=== PATIENT | female | born 1990 | race Caucasian/White ===

== ENCOUNTER → 2018-06-09 | Outpatient (CLI) | payer OTHER ==
[2018-06-09 12:01] LABS: BASO # 0.1 10^3/uL (0.0-0.2); BASO % 0.7 % (0.0-1.0); EOS # 0.1 10^3/uL (0.0-0.50); EOS % 1.7 % (0.0-3.0); HEMOGLOBIN 14.7 g/dl (12.0-15.5); LYMPH # 2.1 10^3/uL (1.5-6.5); LYMPH % 30.8 % (24.0-44.0); MEAN CORPUSCULAR HEMOGLOBIN 28.9 pg (27.0-33.0); MEAN CORPUSCULAR HGB CONC 31.3 g/dl (32.0-36.5); MEAN CORPUSCULAR VOLUME 92.5 fl (80.0-96.0); MONO # 0.5 10^3/uL (0.0-0.8); MONO % 6.7 % (0.0-5.0); NEUTROPHILS # 4.1 10^3/uL (1.8-7.7); NEUTROPHILS % 59.8 % (36.0-66.0); PLATELET COUNT, AUTOMATED 287 10^3/uL (150-450); RED BLOOD COUNT 5.08 10^6/uL (4.00-5.40); WHITE BLOOD COUNT 6.9 10^3/uL (4.0-10.0)
[2018-06-09 12:40] LABS: ALBUMIN 4.2 GM/DL (3.2-5.2); ALT/SGPT 26 U/L (12-78); BILIRUBIN,TOTAL 0.5 MG/DL (0.2-1.0); BLOOD UREA NITROGEN 10 MG/DL (7-18); CALCIUM LEVEL 8.4 MG/DL (8.5-10.1); CARBON DIOXIDE LEVEL 28 MEQ/L (21-32); CHLORIDE LEVEL 106 MEQ/L (98-107); CREATININE FOR GFR 0.66 MG/DL (0.55-1.30); GLOMERULAR FILTRATION RATE > 60.0 (>60); GLUCOSE, FASTING 92 MG/DL (70-100); POTASSIUM SERUM 4.2 MEQ/L (3.5-5.1); SODIUM LEVEL 141 MEQ/L (136-145); TOTAL PROTEIN 7.8 GM/DL (6.4-8.2)
[2018-06-09 13:52] LABS: HEMOGLOBIN A1c 4.9 %
== END ==
LOC: M SMT 09:54
PROVIDERS: ATTEND Physician Assistant
DX: N97.9 Female infertility, unspecified (principal)

== ENCOUNTER → 2019-07-11 | Outpatient (CLI) | payer OTHER ==
[2019-07-11 15:24] LABS: BLOOD UREA NITROGEN 10 MG/DL (7-18); CALCIUM LEVEL 8.9 MG/DL (8.5-10.1); CARBON DIOXIDE LEVEL 29 MEQ/L (21-32); CHLORIDE LEVEL 105 MEQ/L (98-107); CREATININE FOR GFR 0.78 MG/DL (0.55-1.30); GLOMERULAR FILTRATION RATE > 60.0 (>60); GLUCOSE, FASTING 82 MG/DL (70-100); POTASSIUM SERUM 4.1 MEQ/L (3.5-5.1); SODIUM LEVEL 138 MEQ/L (136-145)
== END ==
LOC: M LAB 13:49
PROVIDERS: ATTEND Family Medicine
DX: L70.8 Other acne (principal)

== ENCOUNTER → 2020-03-26 | Outpatient (CLI) | payer OTHER ==
--- NOTE | 2020-03-26 11:04 | REP ---
INDICATION: ENCOUNTER FOR SUPRVSN OF NORMAL PREG 2ND TRIMESTER COMPARISON: None. TECHNIQUE: Transabdominal obstetrical ultrasound with color Doppler evaluation. FINDINGS: Examination demonstrates a single live intrauterine in breech presentation. motion is identified by technologist. Placenta is noted anterior and grade 0 without evidence for placenta previa or abruption. Amniotic fluid volume is normal. Cervix measures 4.7 cm in length and appears closed.. Gestational age by LMP twenty weeks 6 days with AMADOU 08/07/2020. Gestational age by current measurements 21 weeks 5 days with AMADOU 08/01/2020. FHR equals 137 beats per minute. BPD: 5.0 cm 21 weeks 1 day HC: 19.0 cm 21 weeks 2 days AC: 17.7 cm 22 weeks 4 days FL: 3.4 cm 20 weeks 5 days HL: 3.6 cm 22 weeks 4 days HC/AC: 1.07 Estimated weight 442 grams (84thpercentile). Anatomical assessment demonstrates normal structures including cranium, choroid plexus, cavum, cerebellum/posterior fossa, facial features, lungs, four-chamber heart, diaphragm, stomach, cord insertion/three-vessel cord, kidneys/bladder, spine, and extremities. IMPRESSION: 1. Single live intrauterine in breech presentation demonstrating appropriate estimated weight and growth. 2. Limited evaluation of the cardiac ventricular outflow tracts. Remainder of the anatomical assessment is complete and normal. <Electronically signed by Max Mooney > 03/26/20 110
== END ==
LOC: M RAD 09:57
PROVIDERS: ATTEND Obstetrics & Gynecology
DX: Z36.89 Encounter for other specified antenatal screening (principal); Z3A.21 21 weeks gestation of pregnancy

== ENCOUNTER → 2020-05-28 | Outpatient (CLI) | payer OTHER ==
--- NOTE | 2020-05-28 11:35 | REP ---
INDICATION: F/U ANATOMY COMPARISON: 03/26/2020 TECHNIQUE: Transabdominal obstetrical ultrasound with color Doppler evaluation. FINDINGS: Examination demonstrates a single live intrauterine in cephalic presentation. motion is identified by technologist. Placenta is noted anterior and grade 1 without evidence for placenta previa or abruption. Amniotic fluid volume is normal. Cervix measures 3.1 cm in length and appears closed. Gestational age by LMP 29 weeks 6 days with AMADOU 08/07/2020. Gestational age by current measurements 30 weeks 4 days with AMADOU 08/02/2020. FHR equals 167 beats per minute. PAOLA: 17.5 cm (8.9-23.7) Estimated weight 1640 grams (54th percentile based on age by given AMADOU at 08/01/2020). Anatomical assessment demonstrates normal structures including facial profile, cardiac ventricular outflow tracts, diaphragm, stomach, abdominal wall, kidneys/bladder, spine and three-vessel cord. IMPRESSION: Single live intrauterine in cephalic presentation. Estimated weight is within normal range. In conjunction with prior examination anatomical assessment is complete and normal. <Electronically signed by Max Mooney > 05/28/20 [id number]
== END ==
LOC: M WHC 10:01
PROVIDERS: ATTEND Advanced Practice Midwife
DX: Z36.2 Encounter for other antenatal screening follow-up (principal); Z3A.29 29 weeks gestation of pregnancy

== ENCOUNTER → 2020-05-28 | Outpatient (REF) | payer OTHER ==
[2020-05-28 13:53] LABS: HEMATOCRIT 41.9 % (36.0-47.0); HEMOGLOBIN 13.3 g/dl (12.0-15.5); MEAN CORPUSCULAR HEMOGLOBIN 28.9 pg (27.0-33.0); MEAN CORPUSCULAR HGB CONC 31.7 g/dl (32.0-36.5); MEAN CORPUSCULAR VOLUME 90.9 fl (80.0-96.0); PLATELET COUNT, AUTOMATED 196 10^3/uL (150-450); RED BLOOD COUNT 4.61 10^6/uL (4.00-5.40); WHITE BLOOD COUNT 11.7 10^3/uL (4.0-10.0)
[2020-05-28 14:12] LABS: GLUCOSE CHALLENGE TEST 1 HOUR 125 MG/DL (LESS THAN 140)
[2020-05-28 15:08] LABS: HEPATITIS C VIRUS ABY INDEX < 0.0 INDEX (<0.8)
== END ==
LOC: M PLALAB 10:04
PROVIDERS: ATTEND Advanced Practice Midwife
DX: Z34.92 Encounter for supervision of normal pregnancy, unspecified, second trimester (principal); Z3A.23 23 weeks gestation of pregnancy
CPT/HCPCS: 36415; 76816; 82950; 85027; 86803; 86850; 86900; 86901; G0463

== ENCOUNTER → 2020-06-13 | Outpatient (REF) | payer OTHER | LOC: M SFHCWAGY 12:40 | PROVIDERS: ATTEND Obstetrics & Gynecology | DX: O26.899 Other specified pregnancy related conditions, unspecified trimester (principal) ==

== ENCOUNTER → 2020-06-21 | Outpatient (REF) | payer OTHER | LOC: M SFHCWAGY 13:07 | PROVIDERS: ATTEND Advanced Practice Midwife | DX: Z3A.33 33 weeks gestation of pregnancy (principal) ==

== ENCOUNTER 2020-07-10 12:51 | Inpatient (IN) | payer OTHER ==
[~2020-07-10] VITALS: Ht 170.2 cm; Wt 107.0 kg
[2020-07-10] VITALS (10 sets, daily range): BP systolic 116–150; BP diastolic 63–93
[2020-07-10] MEDS ORDERED: SERT-141 PO (13:17)
[2020-07-10] MEDS ORDERED: TUMS500C PO (13:17)
[2020-07-10] MEDS ORDERED: PRENTAB9 PO (13:17)
[2020-07-10] MEDS ORDERED: PENICILLIN G POTASSIUM IV 5 MU in D5W MINI-BAG PLUS 100 ML IV STA (13:39)
--- NOTE | 2020-07-10 13:56 | HPEPDOC ---
Obstetrical History & Physical General Date of Admission Jul 10, 2020 at 13:36 History of Present Illness 30 yo G1 at 36 0/7 weeks gestation by LMP (EDC 08/07/2020) presents wit tony gush o f fluid per vagina at 11:00 while at work. She continued t leak. She denies contractions. + movement. Chief Complaint: Rupture of membranes Information Provided By: Patient Age: 30 : 1 Term: 0 Pre-term: 0 Abortions: 0 Livin Care Care: Good Care Dating Final EDC: August 07, 2020 Final EDC by: LMP Antepartum Course Diagnos(e)s early care at [facility]; transfer of care at 23 weeks to [facility] Past Medical History Past Obstetrical History : Past Obstetrical History: Primgravida Past Medical History Medical History med hx: PCOS anxiety Surgical History: Denies/None Family History Significant Family History: No pertinent family hx Social History Marital Status: Family situation: Spouse/partner home Psychosocial History: Anxiety * Smoker: non-smoker Drugs: denies Allergies Coded Allergies: latex (Verified Allergy, Unknown, ITCHY, 07/10/20) Medications Scheduled No.137/Iron/Folic Acd ( Vitamin Tablet) 1 Each Tablet, 1 TAB PO DAILY Sertraline Hcl (Sertraline HCl) 50 Mg Tablet, 150 MG PO DAILY Scheduled PRN Calcium Carbonate (Tums) 200 Mg Tab.chew, 2 TAB PO QIDP PRN for HEARTBURN Physical Examination Physical Examination GENERAL: Alert and oriented times three. BREAST: . ABDOMEN: Gravid and non-tender to touch. FETUS: Is vertex (VTX) by sterile vaginal examination (SVE), fetus is vertex (VTX) by Patrick. HEART RATE: Regular rate and rhythm. LUNGS: Clear to auscultation (CTA). EXTREMITIES: No edema. No clonus. Deep tendon reflexes (DTRs) + . Vaginal Examination Dilation: 1cm Effacement: 70% Station: -2 Cervical Consistency: Medium Cervical Position: Posterior Presentation: Cephalic presentation Assessment Variability: Moderate Accelerations: Positive Decelerations: None Tocometer Contractions: Yes Frequency: regular Duration: less than 60 seconds Strength: palpated as mild Assessment/Plan Assessment Pt is a 30-year-old (G)1 para (P)0 at 36+0 weeks by LMP (EDC=08/07/2020) Presents with spontaneous rupture of membranes, prior to onset of labor. Plan Admit and orient. Fifth Hand and consent. Diet: regular. Group B Streptococcus (GBS) unknown: plan antibiotic prophylaxis. Labs and intravenous (IV) per unit protocol. Counseled on Pitocin and induction of labor (IOL). Anticipate [normal spontaneous delivery ()]. C-S as appropriate. MICHAEL MORAES MD Jul 10, 2020 13:56
[2020-07-10 14:13] LABS: HEMATOCRIT 42.8 % (36.0-47.0); HEMOGLOBIN 13.9 g/dl (12.0-15.5); MEAN CORPUSCULAR HEMOGLOBIN 29.1 pg (27.0-33.0); MEAN CORPUSCULAR HGB CONC 32.5 g/dl (32.0-36.5); MEAN CORPUSCULAR VOLUME 89.5 fl (80.0-96.0); PLATELET COUNT, AUTOMATED 196 10^3/uL (150-450); RED BLOOD COUNT 4.78 10^6/uL (4.00-5.40); WHITE BLOOD COUNT 10.8 10^3/uL (4.0-10.0)
[2020-07-10] MEDS: PENICILLIN G POTASSIUM IV 2.5 MU in IV 1 EA IV SCH ×2 (18:18→22:47)
[2020-07-10] MEDS ORDERED: OXYTOCIN DRIP 30 UNITS in IV 1 EA IV SCH (20:05)
[2020-07-10] MEDS: LR 1,000 ML IV SCH (22:47)
[2020-07-11] VITALS (14 sets, daily range): BP systolic 124–172; BP diastolic 69–107
[2020-07-11] MEDS: LR 1,000 ML IV SCH (03:31)
[2020-07-11] MEDS ORDERED: LIDOCAINE 1% MDV 20ML VIAL As Ordered ONE ×2 (04:04→04:17)
[2020-07-11 04:34] LABS: CORD GAS ABE A -2.7; CORD GAS HCO3 A 23.5 MEQ/L; CORD GAS O2 SAT A 58.1 %; CORD GAS PCO2 A 45.7 mmHg; CORD GAS PH A 7.329 UNITS; CORD GAS PO2 A 24.8 mmHg; CORD GAS SBC A 21.2 MEQ/L; CORD GAS TCO2 A 24.9 MEQ/L
[2020-07-11 04:35] LABS: CORD GAS ABE V -5.9; CORD GAS HCO3 V 19.3 MEQ/L; CORD GAS PCO2 V 37.7 mmHg; CORD GAS PH V 7.328 UNITS; CORD GAS PO2 V 25.8 mmHg; CORD GAS SBC V 18.8 MEQ/L; CORD GAS TCO2 V 20.5 MEQ/L
[2020-07-11] MEDS ORDERED: DOCUSATE SODIUM 100MG CAPSULE PO PRN (04:55)
[2020-07-11] MEDS ORDERED: ONDANSETRON 4MG/2ML VIAL IV PRN (04:55)
[2020-07-11] MEDS ORDERED: MEASLES,MUMPS,RUBELLA VACCINE INJ (MMR-II) (90707) SC SCH (04:55)
[2020-07-11] MEDS ORDERED: LIDOCAINE 1% MDV 20ML VIAL INFIL ONE (04:55)
[2020-07-11] MEDS ORDERED: METHYLERGONOVINE MALEATE 0.2 MG TAB PO PRN (04:55)
[2020-07-11] MEDS ORDERED: ACETAMINOPHEN TAB 650MG DOSE (2X325MG) PO PRN (04:55)
[2020-07-11] MEDS ORDERED: RHOGAM 300 MCG (1500 IU) INJ (J2790) IM SCH (04:55)
[2020-07-11] MEDS ORDERED: OXYTOCIN DRIP 30 UNITS in IV 1 EA IV ONE (04:55)
--- NOTE | 2020-07-11 04:59 | DNPDOC ---
[facility] Delivery Note Delivery Note DATE OF DELIVERY: July 11, 2020 PREDELIVERY DIAGNOSIS: 36-0/7 weeks' gestation and labor, PPROM. POST DELIVERY DIAGNOSIS: Delivered. PROCEDURE: Spontaneous vaginal delivery. SALES STRATEGY MANAGER: Dr. Michael Moraes MD ANESTHESIA: none. ESTIMATED BLOOD LOSS: 300 mL. FINDINGS: 6 pound 13 ounce male infant, Score 7/7. DELIVERY SUMMARY: Patient is a 30-year-old 1 now para 1 who was admitted for PPROM and early labor. She had Pitocin augmentation. After a 10 minute second stage of labor she had a spontaneous vaginal delivery of a 6# 13 oz male infant. No nuchal cord. Shoulders delivered with ease. Placenta delivered spontaneously and appeared intact. Baby handed to mother. Cord clamped and cut. Second degree perineal laceration repaired under local anesthesia with 2-O Chromic in the usual fashion. Sponge and needle counts correct. MICHAEL MORAES MD Jul 11, 2020 04:59
[2020-07-11] MEDS: PRENATAL VITAMINS CHEWABLE TABLET PO SCH (07:54)
[2020-07-11] MEDS: ACETAMINOPHEN 500 MG TAB PO PRN ×2 (07:54→16:50)
[2020-07-11] MEDS: SERTRALINE HCL 50 MG TAB PO SCH (09:45)
[2020-07-11] MEDS: IBUPROFEN 800 MG TAB PO PRN (12:52)
[2020-07-11] MEDS: IBUPROFEN 600MG TAB PO PRN (20:50)
[2020-07-11] MEDS: DIBUCAINE 1% OINTMENT 30GM TOP PRN (20:51)
[2020-07-12] MEDS: IBUPROFEN 600MG TAB PO PRN (02:51)
[2020-07-12 06:00] VITALS: BP 137/79
[2020-07-12] MEDS: SERTRALINE HCL 50 MG TAB PO SCH (09:48)
[2020-07-12] MEDS: ACETAMINOPHEN 500 MG TAB PO PRN ×2 (09:48→23:07)
[2020-07-12] MEDS: PRENATAL VITAMINS CHEWABLE TABLET PO SCH (09:48)
[2020-07-12] MEDS: IBUPROFEN 800 MG TAB PO PRN (17:14)
[2020-07-12 18:00] VITALS: BP 136/71
[2020-07-12] MEDS: DIBUCAINE 1% OINTMENT 30GM TOP PRN (19:36)
[2020-07-13] MEDS: IBUPROFEN 800 MG TAB PO PRN (03:21)
[2020-07-13 05:53] VITALS: BP 119/77
--- NOTE | 2020-07-13 07:42 | IPNPDOC ---
Progress Note Date of Service: Jul 13, 2020 Day#: 1 Progress Note PPD 1 SUBJECT: Natasha is a 30yo s/p uncomplicated at 36wk after undergoing IOL for PPROM, doing well day # 2. She has been ambulating, voiding spontaneously without issue and tolerating regular diet. Breast feeding without issue. Reports lochia is like a normal period. No f/c/n/v/CP/SOB. OBJECTIVE: VITAL SIGNS: Within normal limits, afebrile. Alert and oriented times three. Abdomen: Fundus firm at U-2. Soft, NTTP. Extremities: no pain with palpation of calves ASSESSMENT: Natasha is a 30yo s/p uncomplicated at 36wk after undergoing IOL for PPROM, doing well day # 2. Vitals within normal limits, afebrile, hemodynamically stable with no evidence of infection. PLAN: 1. Baby will be under bili lights today, so consider boarding if possible for mom. She is meeting all criteria for discharge. 2. Tylenol and Motrin for pain. 3. Encourage breast feeding and ambulation. 4. Undecided on contraception, interested in minipill vs Mirena IUD and will consider more 5. Routine PP visit in 6 weeks in clinic. 6. Discussed return precautions at length. 7. No heavy lifting and vaginal rest 6 weeks Marlys Saucedo MD VS, I&O, 24H, Fishbone Vital Signs/I&O Vital Signs Date Time Temp Pulse Resp B/P (MAP) Pulse Ox O2 Delivery O2 Flow Rate FiO2 07/13/20 05:53 98.6 94 18 119/77 (91) 98 Room Air Marlys Saucedo MD Jul 13, 2020 07:42
[2020-07-13] MEDS ORDERED: DOK1CAP7 PO (07:45)
[2020-07-13] MEDS ORDERED: IBUP80TA PO (07:45)
--- NOTE | 2020-07-13 07:48 | DS.PDOC ---
Discharge Summary General Date of Admission Jul 10, 2020 at 13:36 Date of Discharge 07/13/2020 Discharge Summary PROCEDURES PERFORMED DURING STAY: spontaneous vaginal delivery ADMITTING DIAGNOSES: 1. PPROM at 36wk DISCHARGE DIAGNOSES: 1. PPROM at 36wk, delivered COMPLICATIONS/CHIEF COMPLAINT: SROM. HISTORY OF PRESENT ILLNESS/HOSPITAL COURSE: Natasha is a 30yo s/p uncomplicated at 36wk after undergoing IOL for PPROM, doing well day # 2. Vitals within normal limits, afebrile, hemodynamically stable with no evidence of infection. DISCHARGE MEDICATIONS: Please see below. ALLERGIES: Please see below. PHYSICAL EXAMINATION ON DISCHARGE: VITAL SIGNS: Within normal limits, afebrile. Alert and oriented times three. Abdomen: Fundus firm at U-2. Soft, NTTP. Extremities: no pain with palpation of calves LABORATORY DATA: Please see below. DIET: regular DISPOSITION: home DISCHARGE PLAN/INSTRUCTIONS: 1. Discharge to home 2. Tylenol and Motrin for pain. 3. Encourage breast feeding and ambulation. 4. Undecided on contraception, interested in minipill vs Mirena IUD and will consider more 5. Routine PP visit in 6 weeks in clinic. 6. Discussed return precautions at length. 7. No heavy lifting and vaginal rest 6 weeks DISCHARGE CONDITION: Stable TIME SPENT ON DISCHARGE: Greater than 20 minutes. Vital Signs/I&Os Vital Signs Date Time Temp Pulse Resp B/P (MAP) Pulse Ox O2 Delivery O2 Flow Rate FiO2 07/13/20 05:53 98.6 94 18 119/77 (91) 98 Room Air Discharge Medications Scheduled No.137/Iron/Folic Acd ( Vitamin Tablet) 1 Each Tablet, 1 TAB PO DAILY, (Reported) Sertraline Hcl (Sertraline HCl) 50 Mg Tablet, 150 MG PO DAILY, (Reported) Scheduled PRN Calcium Carbonate (Tums) 200 Mg Tab.chew, 2 TAB PO QIDP PRN for HEARTBURN, (Reported) Docusate Sodium (Dok) 100 Mg Capsule, 100 MG PO BID PRN for CONSTIPATION Ibuprofen (Ibuprofen) 800 Mg Tablet, 800 MG PO Q8HP PRN for PAIN LEVEL 6-10 Allergies Coded Allergies: latex (Verified Allergy, Unknown, ITCHY, 07/10/20) Marlys Saucedo MD Jul 13, 2020 07:48
[2020-07-13] MEDS: PRENATAL VITAMINS CHEWABLE TABLET PO SCH (08:09)
[2020-07-13] MEDS: ACETAMINOPHEN 500 MG TAB PO PRN (08:09)
[2020-07-13] MEDS: SERTRALINE HCL 50 MG TAB PO SCH (08:22)
== END 2020-07-13 12:15 | disposition home or self-care (01) | DRG 807 ==
LOC: M LDO 12:51 → M LDI 13:36 → M OBS 07-11 06:14
PROVIDERS: ADMIT Specialist; ATTEND Specialist
PROC: 3E033VJ Introduction of Other Hormone into Peripheral Vein, Percutaneous Approach (ICD-10-PCS; 2020-07-10)
PROC: 10E0XZZ Delivery of Products of Conception, External Approach (ICD-10-PCS; principal; 2020-07-11)
PROC: 0KQM0ZZ Repair Perineum Muscle, Open Approach (ICD-10-PCS; 2020-07-11)
DX: O42.013 Preterm premature rupture of membranes, onset of labor within 24 hours of rupture, third trimester (principal); Z37.0 Single live birth; Z3A.36 36 weeks gestation of pregnancy; O70.1 Second degree perineal laceration during delivery

== ENCOUNTER → 2021-02-06 | Outpatient (CLI) | payer OTHER ==
[~2021-02-06] MED LIST: DOK1CAP4 PO; IBUP80TA PO; PRENTAB9 PO; SERT-141 PO; TUMS500C PO
[2021-02-06 17:51] LABS: BASO % 0.5 % (0.0-1.0); EOS # 0.1 10^3/uL (0.0-0.5); EOS % 1.6 % (0.0-3.0); HEMATOCRIT 48.7 % (36.0-47.0); HEMOGLOBIN 15.2 g/dl (12.0-15.5); LYMPH % 26.6 % (24.0-44.0); MEAN CORPUSCULAR HEMOGLOBIN 27.9 pg (27.0-33.0); MEAN CORPUSCULAR HGB CONC 31.2 g/dl (32.0-36.5); MEAN CORPUSCULAR VOLUME 89.5 fl (80.0-96.0); MONO # 0.6 10^3/uL (0.0-0.8); MONO % 7.7 % (2.0-8.0); NEUTROPHILS # 4.9 10^3/uL (1.5-8.5); NEUTROPHILS % 63.3 % (36.0-66.0); PLATELET COUNT, AUTOMATED 287 10^3/uL (150-450); RED BLOOD COUNT 5.44 10^6/uL (4.00-5.40); WHITE BLOOD COUNT 7.7 10^3/uL (4.0-10.0)
[2021-02-06 18:27] LABS: ALBUMIN 4.1 GM/DL (3.2-5.2); ALT/SGPT 27 U/L (12-78); BILIRUBIN,TOTAL 0.6 MG/DL (0.2-1.0); BLOOD UREA NITROGEN 13 MG/DL (7-18); CALCIUM LEVEL 9.3 MG/DL (8.5-10.1); CARBON DIOXIDE LEVEL 29 MEQ/L (21-32); CHLORIDE LEVEL 107 MEQ/L (98-107); CREATININE FOR GFR 0.73 MG/DL (0.55-1.30); GLOMERULAR FILTRATION RATE > 60.0 (>60); GLUCOSE, FASTING 102 MG/DL (70-100); POTASSIUM SERUM 4.1 MEQ/L (3.5-5.1); SODIUM LEVEL 141 MEQ/L (136-145); THYROID STIMULATING HORMONE 0.858 uIU/ML (0.358-3.740); TOTAL PROTEIN 7.7 GM/DL (6.4-8.2)
[2021-02-06 19:07] LABS: HEMOGLOBIN A1c 4.9 %
== END ==
LOC: M PLALAB 13:58
PROVIDERS: ATTEND Family Medicine
DX: Z13.29 Encounter for screening for other suspected endocrine disorder (principal); Z13.0 Encounter for screening for diseases of the blood and blood-forming organs and certain disorders involving the immune mechanism

== ENCOUNTER → 2022-06-30 | Outpatient (CLI) | payer OTHER ==
[2022-06-30 14:56] LABS: HEMATOCRIT 41.7 % (36.0-47.0); HEMOGLOBIN 13.4 g/dl (12.0-15.5); MEAN CORPUSCULAR HEMOGLOBIN 28.9 pg (27.0-33.0); MEAN CORPUSCULAR HGB CONC 32.1 g/dl (32.0-36.5); MEAN CORPUSCULAR VOLUME 90.1 fl (80.0-96.0); PLATELET COUNT, AUTOMATED 211 10^3/uL (150-450); RED BLOOD COUNT 4.63 10^6/uL (4.00-5.40); WHITE BLOOD COUNT 10.9 10^3/uL (4.0-10.0)
[2022-06-30 16:45] LABS: GC DNA AMPLIFICATION NEGATIVE (NEGATIVE)
[2022-06-30 20:51] LABS: HEPATITIS C VIRUS ABY INDEX < 0.0 INDEX (<0.8)
[2022-06-30 21:00] LABS: HIV 1&2 SCREEN CENTAUR NEGATIVE (NEGATIVE)
== END ==
LOC: M PLALAB 10:33
PROVIDERS: ATTEND Advanced Practice Midwife
DX: Z34.92 Encounter for supervision of normal pregnancy, unspecified, second trimester (principal)

== ENCOUNTER → 2022-08-01 | Outpatient (CLI) | payer OTHER | LOC: M WHC 12:08 | PROVIDERS: ATTEND Advanced Practice Midwife | DX: Z34.92 Encounter for supervision of normal pregnancy, unspecified, second trimester (principal); Z3A.19 19 weeks gestation of pregnancy ==

== ENCOUNTER → 2022-08-26 | Outpatient (REF) | payer OTHER | LOC: M PLALAB 15:20 | PROVIDERS: ATTEND Advanced Practice Midwife | DX: Z34.82 Encounter for supervision of other normal pregnancy, second trimester (principal) | CPT/HCPCS: 87086; G0463 ==

== ENCOUNTER → 2022-09-16 | Outpatient (CLI) | payer OTHER ==
[2022-09-16 14:24] LABS: HEMATOCRIT 40.9 % (36.0-47.0); HEMOGLOBIN 13.3 g/dl (12.0-15.5); MEAN CORPUSCULAR HEMOGLOBIN 29.6 pg (27.0-33.0); MEAN CORPUSCULAR HGB CONC 32.5 g/dl (32.0-36.5); MEAN CORPUSCULAR VOLUME 90.9 fl (80.0-96.0); PLATELET COUNT, AUTOMATED 228 10^3/uL (150-450)
== END ==
LOC: M PLALAB 10:24
PROVIDERS: ATTEND Advanced Practice Midwife
DX: Z34.82 Encounter for supervision of other normal pregnancy, second trimester (principal)
CPT/HCPCS: 36415; 82950; 85027; 86850; 86900; 86901; G0463

== ENCOUNTER → 2022-09-18 | Outpatient (CLI) | payer OTHER | LOC: M WHC 12:00 | PROVIDERS: ATTEND Advanced Practice Midwife | DX: Z34.82 Encounter for supervision of other normal pregnancy, second trimester (principal) ==

== ENCOUNTER → 2022-10-28 | Outpatient (REF) | payer OTHER | LOC: M SFHCWAGY 13:14 | PROVIDERS: ATTEND Advanced Practice Midwife | DX: Z34.82 Encounter for supervision of other normal pregnancy, second trimester (principal) | CPT/HCPCS: 87086; 90471; 90715; G0463 ==

== ENCOUNTER → 2022-11-12 | Outpatient (REF) | payer OTHER | LOC: M SFHCWAGY 12:53 | PROVIDERS: ATTEND Advanced Practice Midwife | DX: Z34.83 Encounter for supervision of other normal pregnancy, third trimester (principal) | CPT/HCPCS: 81002; 87086; G0463 ==

== ENCOUNTER → 2022-11-26 | Outpatient (REF) | payer OTHER | LOC: M PLALAB 10:03 | PROVIDERS: ATTEND Obstetrics & Gynecology | DX: Z34.00 Encounter for supervision of normal first pregnancy, unspecified trimester (principal) ==

== ENCOUNTER → 2022-12-09 | Outpatient (CLI) | payer OTHER ==
[~2022-12-09] MED LIST changes: +ACET-683 PO; +COLA100C5 PO; +GNP250TA9 PO; +IBUP-1022 PO; +NORE0.353 PO; +SERT50TA29 PO
[2022-12-09 13:45] LABS: MEAN CORPUSCULAR HEMOGLOBIN 29.2 pg (27.0-33.0); MEAN CORPUSCULAR HGB CONC 31.8 g/dl (32.0-36.5); MEAN CORPUSCULAR VOLUME 91.7 fl (80.0-96.0); PLATELET COUNT, AUTOMATED 179 10^3/uL (150-450); WHITE BLOOD COUNT 11.1 10^3/uL (4.0-10.0)
[2022-12-09 14:01] LABS: TOTAL PROTEIN,RANDOM URINE 51.8 MG/DL (0.0-14.0)
[2022-12-09 14:04] LABS: URIC ACID 6.1 MG/DL (3.1-7.8)
[2022-12-09 14:05] LABS: LDH LACTATE DEHYDROGENASE 175 U/L (120-246)
[2022-12-09 14:06] LABS: ALT/SGPT 26 U/L (7.0-40); AST/SGOT 24 U/L (<34); BILIRUBIN,TOTAL 0.4 MG/DL (0.3-1.2); CREATININE FOR GFR 0.58 MG/DL (0.55-1.30); CREATININE,RANDOM URINE 106.5 MG/DL; GLOMERULAR FILTRATION RATE > 60.0 (>60)
== END ==
LOC: M PLALAB 09:56
PROVIDERS: ATTEND Obstetrics & Gynecology
DX: O16.9 Unspecified maternal hypertension, unspecified trimester (principal)
CPT/HCPCS: 36415; 82247; 82565; 82570; 83615; 84156; 84450; 84460; 84550; 85027; G0463

== ENCOUNTER → 2023-02-10 | Outpatient (CLI) | payer OTHER ==
[2023-02-10 13:10] LABS: THYROID STIMULATING HORMONE 1.307 uIU/ML (0.55-4.78)
[2023-02-10 13:11] LABS: ALBUMIN 4.1 G/DL (3.2-5.2); ALKALINE PHOSPHATASE 94 U/L (46-116); ALT/SGPT 31 U/L (7.0-40); AST/SGOT 19 U/L (<34); BILIRUBIN,TOTAL 0.6 MG/DL (0.3-1.2); BLOOD UREA NITROGEN 16 MG/DL (9-23); CALCIUM LEVEL 9.2 MG/DL (8.5-10.1); CARBON DIOXIDE LEVEL 27 MMOL/L (20-31); CHLORIDE LEVEL 107 MMOL/L (98-107); CREATININE FOR GFR 0.73 MG/DL (0.55-1.30); FREE T4 0.82 NG/DL (0.89-1.76); GLOMERULAR FILTRATION RATE > 60.0 (>60); GLUCOSE, FASTING 83 MG/DL (60-100); POTASSIUM SERUM 4.4 MMOL/L (3.5-5.1); SODIUM LEVEL 142 MMOL/L (136-145); TOTAL PROTEIN 7.4 G/DL (5.7-8.2)
[2023-02-10 13:18] LABS: BASO # 0.1 10^3/uL (0.0-0.2); BASO % 0.7 % (0.0-1.0); EOS # 0.2 10^3/uL (0.0-0.5); EOS % 2.8 % (0.0-3.0); HEMATOCRIT 47.4 % (36.0-47.0); HEMOGLOBIN 15.1 g/dl (12.0-15.5); LYMPH # 2.1 10^3/uL (1.5-5.0); LYMPH % 27.3 % (24.0-44.0); MEAN CORPUSCULAR HEMOGLOBIN 28.8 pg (27.0-33.0); MEAN CORPUSCULAR HGB CONC 31.9 g/dl (32.0-36.5); MEAN CORPUSCULAR VOLUME 90.5 fl (80.0-96.0); MONO # 0.4 10^3/uL (0.0-0.8); MONO % 5.8 % (2.0-8.0); NEUTROPHILS # 4.8 10^3/uL (1.5-8.5); NEUTROPHILS % 63.1 % (36.0-66.0); PLATELET COUNT, AUTOMATED 263 10^3/uL (150-450); RED BLOOD COUNT 5.24 10^6/uL (4.00-5.40); WHITE BLOOD COUNT 7.6 10^3/uL (4.0-10.0)
[2023-02-10 14:11] LABS: HEMOGLOBIN A1c 4.9 % (4.0-6.0)
== END ==
LOC: M PLALAB 10:45
PROVIDERS: ATTEND Family Medicine
DX: E28.2 Polycystic ovarian syndrome (principal); Z13.29 Encounter for screening for other suspected endocrine disorder; Z13.0 Encounter for screening for diseases of the blood and blood-forming organs and certain disorders involving the immune mechanism